=== PATIENT | female | born 1950 | race Caucasian/White ===

== ENCOUNTER 2017-08-11 09:38 | Emergency (ER) | payer MEDICARE ==
[~2017-08-11] VITALS: Ht 157.5 cm; Wt 64.0 kg
[2017-08-11 09:41] VITALS: Ht 157.5 cm; Wt 64.0 kg
--- NOTE | 2017-08-11 10:35 | RADRPT ---
PROCEDURE: US Abdomen Limited . CLINICAL INDICATION: Abdominal pain TECHNIQUE: Multiple real-time images were acquired of the patient's right upper quadrant abdomen u tilizing a high resolution transducer. COMPARISON: None FINDINGS: The liver measures 13.2 cm and demonstrates a normal echogenicity. The gallbladder is filled with a moderate amount of bile. No shadowing echogenic stones or masses are seen in the gallbladder. The gallbladder wall is not thickened at 2.4 mm. No pericholecystic fluid is noted. The common bile duct measures 2.3 mm in diameter. The visualized portions of the proximal pancreas are unremarkable. Th e tail of the pancreas is not well visualized. Antegrade flow is seen in the portal vein. Right kidney measures 10.4 cm. Right kidney demonstrates a normal echogenicity. No hydronephrosis, masses or stones are noted. IMPRESSION: Tail of the pancreas not well visualized. If characterization of this structure is needed repeat exa m or CT/MRI is recommended. Otherwise, unremarkable exam. RPTAT: AA .Luis A Ramsey MD, MD Date Time Electronically viewed and signed by .Luis A Ramsey MD, MD on 08/11/2017 10:35 .P/
[2017-08-11 10:40] LABS: BASOPHIL # 0.1 10^3/ul (0.0-0.1); EOSINOPHILS # 0.1 10^3/ul (0.0-0.5); EOSINOPHILS % 1.3 % (0.0-7.0); HEMATOCRIT 40.8 % (37.0-47.0); HEMOGLOBIN 13.5 g/dl (12.0-16.0); LYMPHOCYTES # 2.2 10^3/ul (0.8-2.9); LYMPHOCYTES % 30.8 % (15.0-51.0); MEAN CORPUSCULAR HEMOGLOBIN 30.1 pg (29.0-33.0); MEAN CORPUSCULAR HGB CONC 33.1 g/dl (32.0-37.0); MEAN CORPUSCULAR VOLUME 91.1 fl (82.0-101.0); MEAN PLATELET VOLUME 10.7 fl (7.4-10.4); MONOCYTE # 0.4 10^3/ul (0.3-0.9); MONOCYTES % 5.9 % (0.0-11.0); NEUTROPHIL # 4.4 10^3/ul (1.6-7.5); NEUTROPHILS % 60.7 % (39.0-77.0); PLATELET COUNT 251 10^3/UL (140-415); RED BLOOD COUNT 4.48 10^6/ul (4.20-5.40); RED CELL DISTRIBUTION WIDTH 12.4 % (11.5-14.5); WHITE BLOOD COUNT 7.2 10^3/ul (4.8-10.8)
[2017-08-11 10:58] LABS: ADD UMIC YES; UR ASCORBIC ACID NEGATIVE (NEGATIVE); UR BILIRUBIN (Dip) NEGATIVE (NEGATIVE); UR BLOOD (Dip) 2+ mg/dL (NEGATIVE); UR CLARITY CLEAR (CLEAR); UR COLOR YELLOW (YELLOW); UR GLUCOSE (Dip) NEGATIVE (NEGATIVE); UR KETONES (Dip) NEGATIVE (NEGATIVE); UR LEUKOCYTE ESTERASE (Dip) NEGATIVE Leu/ul (NEGATIVE); UR MUCUS MODERATE /HPF (NONE SEEN); UR NITRITE (Dip) NEGATIVE (NEGATIVE); UR RBC 5 /HPF (0-5); UR SPECIFIC GRAVITY (Dip) 1.026 (1.003-1.030); UR SQUAMOUS EPITHELIAL CELL FEW /HPF (FEW); UR TOTAL PROTEIN (Dip) NEGATIVE (NEGATIVE); UR UROBILINOGEN (Dip) NEGATIVE (NEGATIVE)
[2017-08-11 11:03] LABS: ALBUMIN 4.4 g/dl (3.3-4.9); ALBUMIN/GLOBULIN RATIO 1.18; BILIRUBIN,INDIRECT 0.5 mg/dl (0-1.1); BILIRUBIN,TOTAL 0.5 mg/dl (0.2-1.3); CALCIUM 9.3 mg/dl (8.4-10.2); CREATININE 0.83 mg/dl (0.44-1.00); POTASSIUM 3.6 mmol/L (3.5-5.1); TOTAL PROTEIN 8.1 g/dl (6.1-8.1)
--- NOTE | 2017-08-11 11:07 | RADRPT ---
PROCEDURE: CT Abdomen and Pelvis without contrast. CLINICAL INDICATION: Abdominal pain. TECHNIQUE: CT scan of the abdomen and pelvis without contrast was performed on a multidetector CT scanner. The patient was scanned without intravenous contrast. Coronal and sagittal reformatted marcus ges were obtained from the axial source images. Images were reviewed on a high-resolution PACS works tation. DICOM images are available. One or more of the following dose reduction techniques were used: -Automated exposure control. -Adjustment of the mA and/or kV according to patient size. -Use of iterative reconstruction technique. The total exam CTDI equals 8.08 mGy and the total exam DLP equals 399.50 mGy-cm. COMPARISON: None. FINDINGS: Please note that the sensitivity for detection of focal lesions or vascular disease is markedly redu gokul without intravenous contrast. There is bibasilar atelectasis. CT abdomen: Liver: Nonspecific calcification in the right hepatic lobe, otherwise unremarkable. Biliary system: No intra or extrahepatic biliary ductal dilatation. Gallbladder: Unremarkable. Pancreas: Unremarkable. Spleen: Unremarkable. Adrenal glands: Unremarkable. Right kidney: Unremarkable. No renal or ureteric stones. No hydronephrosis or hydroureter. Left kidney: Unremarkable. No renal or ureteric stones. No hydronephrosis or hydroureter. Bowel loops: Unremarkable. There is no bowel obstruction. Appendix normal. Lymph Nodes: There is no mesenteric lymphadenopathy. There is no retroperitoneal lymphadenopathy. CT pelvis: Bowel loops: Unremarkable. Rectum: Unremarkable. Urinary bladder: Unremarkable. Unenhanced uterus appears unremarkable. No adnexal mass. Lymph nodes: There is no iliac lymphadenopathy. There is no inguinal lymphadenopathy. Bone: No aggressive osseous lesions. There are multilevel degenerative changes of the imaged spine. IMPRESSION: 1. No acute abnormality of the abdomen or pelvis. 2. No renal or ureteric calculi. No hydronephrosis. 3. No bowel obstruction. Normal appendix. RPTAT: EE Crystal Paez Physician Date Time Electronically viewed and signed by Crystal Paez Physician on 08/11/2017 11:06 PH/
[2017-08-11 11:23] VITALS: BP 149/84; PULSE 99; RESP 17; TEMP 98.2
[2017-08-11] MEDS ORDERED: IBUP800T25 PO (12:16)
--- NOTE | 2017-08-11 12:20 | ERD ---
ER Documentation Chief Complaint Chief Complaint R.side flank pain x 2 days with urination urgency x 1 month HPI This is a 67-year-old female who presents to the emergency room with 2 days of right-sided flank pain radiating to the anterior abdomen. It radiates to the mid abdomen. She does describe some urinary urgency for approximately 1 month but no significant dysuria or hematuria. She denies any nausea vomiting or constipation. She states no pain currently but was having some discomfort last night. ROS All systems reviewed and are negative except as per history of present illness. Medications Home Meds Active Scripts Ibuprofen* (Motrin*) 800 Mg Tab, 800 MG PO Q6H Y for PAIN AND OR ELEVATED TEMP, #30 TAB Prov:LYSSA OLMEDO MD 08/11/17 Allergies Allergies: Coded Allergies: No Known Allergy (Unverified , 08/11/17) PMhx/Soc Medical and Surgical Hx: pt denies Medical Hx History of Surgery: Yes (right wrist surgery) Anesthesia Reaction: No Hx Neurological Disorder: No Hx Respiratory Disorders: No Hx Cardiac Disorders: No Hx Psychiatric Problems: No Hx Miscellaneous Medical Probl: No Hx Alcohol Use: No Hx Substance Use: No Hx Tobacco Use: No Smoking Status: Never smoker FmHx Family History: No diabetes Physical Exam Vitals Vital Signs Date Time Temp Pulse Resp B/P Pulse Ox O2 Delivery O2 Flow Rate FiO2 08/11/17 11:23 98.2 99 17 149/84 98 Room Air 08/11/17 09:41 98.0 112 20 128/83 99 Physical Exam General: Well developed, well nourished, no acute distress Head: Normocephalic, atraumatic. Eyes: Pupils equally reactive, EOM intact ENT: Moist mucous membranes Neck: Supple, no lymphadenopathy Respiratory: Lungs clear bilaterally, no distress Cardiovascular: RRR, no murmurs, rubs, or gallops Abdominal: Soft, non-tender, non-distended, no peritoneal signs, negative Simpson sign, no tenderness to McBurney's point : Deferred MSK: No edema, no unilateral swelling, 5/5 strength Neurologic: Alert and oriented, moving all extremities, normal speech, no focal weakness, no cerebellar signs Skin: No rash, no evidence of shingles Psych: Normal mood Result Diagram: 08/11/17 1016 08/11/17 1016 Results 24 hrs Laboratory Tests Test 08/11/17 10:16 White Blood Count 7.210^3/ul Red Blood Count 4.4810^6/ul Hemoglobin 13.5g/dl Hematocrit 40.8% Mean Corpuscular Volume 91.1fl Mean Corpuscular Hemoglobin 30.1pg Mean Corpuscular Hemoglobin Concent 33.1g/dl Red Cell Distribution Width 12.4% Platelet Count 04540^3/UL Mean Platelet Volume 10.7fl Neutrophils % 60.7% Lymphocytes % 30.8% Monocytes % 5.9% Eosinophils % 1.3% Basophils % 1.0% Nucleated Red Blood Cells % 0.0/100WBC Neutrophils # 4.410^3/ul Lymphocytes # 2.210^3/ul Monocytes # 0.410^3/ul Eosinophils # 0.110^3/ul Basophils # 0.110^3/ul Nucleated Red Blood Cells # 0.010^3/ul Urine Color YELLOW Urine Clarity CLEAR Urine pH 5.0 Urine Specific [place] 1.026 Urine Ketones NEGATIVEmg/dL Urine Nitrite NEGATIVEmg/dL Urine Bilirubin NEGATIVEmg/dL Urine Urobilinogen NEGATIVEmg/dL Urine Leukocyte Esterase NEGATIVELeu/ul Urine Microscopic RBC 5/HPF Urine Microscopic WBC 1/HPF Urine Squamous Epithelial Cells FEW/HPF Urine Mucus MODERATE/HPF Urine Hemoglobin 2+mg/dL Urine Glucose NEGATIVEmg/dL Urine Total Protein NEGATIVEmg/dl Sodium Level 144mmol/L Potassium Level 3.6mmol/L Chloride Level 105mmol/L Carbon Dioxide Level 25mmol/L Anion Gap 18 Blood Urea Nitrogen 18mg/dl Creatinine 0.83mg/dl Glucose Level 127mg/dl Calcium Level 9.3mg/dl Total Bilirubin 0.5mg/dl Direct Bilirubin 0.00mg/dl Indirect Bilirubin 0.5mg/dl Aspartate Amino Transf (AST/SGOT) 29IU/L Alanine Aminotransferase (ALT/SGPT) 29IU/L Alkaline Phosphatase 78IU/L Total Protein 8.1g/dl Albumin 4.4g/dl Globulin 3.70g/dl Albumin/Globulin Ratio 1.18 Lipase 90U/L Procedures/MDM EKG, MONITORS, & DIAGNOSTIC IMAGING: Gallbladder ultrasound: No evidence of acute process per radiologist CT abdomen and pelvis: No evidence of acute intra-abdominal process per radiologist LAB INTERPRETATION: The patient has no significant leukocytosis no evidence of hepatobiliary obstruction and a urinalysis that is unremarkable. MEDICAL DECISION MAKING: Patient presents with flank pain of unclear etiology. The patient is asymptomatic currently. Consider her location of pain this could be traveling sales representative of gallbladder disease process versus ureterolithiasis. No evidence of shingles. No pleuritic pain, no evidence of cardiopulmonary process. No respiratory symptoms. No signs or symptoms concerning for ACS or pulmonary embolism. Given the patient's age I believe she would benefit from laboratory testing and diagnostic imaging. ER COURSE: The patient did not have any pain and was asymptomatic here in the emergency room. No evidence of acute vascular emergency such as dissection or aneurysm. The patient has laboratory testing that is unrevealing. Diagnostic imaging that is also unrevealing. At this time I do not have a clear etiology as to the patient's symptoms however this could be traveling sales representative of a musculoskeletal process. The patient has no evidence of acute process based on labs and imaging here in the emergency room. At this point I feel she can be safely discharged home with nonsteroidal anti-inflammatory course. She was advised to return for any worsening pain or exacerbation of symptoms or other symptoms. The patient verbalized understanding and feel comfortable with this plan. Patient's blood pressure was elevated (>120/80) but appears stable without evidence of hypertensive emergency or urgency. The patient was counseled about the risks of hypertension and urged to pursue outpatient monitoring and therapy within a week with their primary care physician. I kept the patient and/or family informed of laboratory and diagnostic imaging results throughout the emergency room course. DISPOSITION PLAN: We discussed follow up with the patient's primary care doctor within 24 to 48 hours as needed. We also discussed return to the emergency room for worsening symptoms or worsening condition. Outpatient referral: [None required] Discharge Medications: Motrin Departure Diagnosis: Primary Impression: Flank pain Condition: Stable Patient Instructions: Flank Pain, Uncertain Cause Referrals: [facility] Usted se pan hecho un examen mdico de control que le indica que no est en maria isabel condicin que requiera tratamiento urgente en el Departamento de Emergencia. Un estudio ms profundo y el tratamiento de ramirez condicin pueden esperar sin ningn riesgo hasta que usted sea atendida/o en el consultorio de ramirez mdico o maria isabel cl winnie. Es responsabilidad suya arreglar maria isabel moe para el seguimiento del marcy. MANEJO DE CONDICIONES NO URGENTES EN EL FUTURO 1) Si usted tiene un mdico de atencin primaria: Usted debera llamar a ramirez mdico de atencin primaria antes de venir al departamento de emergencia. Despus de las horas de consultorio, ramirez doctor o ramirez asociado/a est disponible por telfono. El mdico o enfermero de bry en el servicio telefnico puede asesorarle por anny medio para atender el problema, o marcy contrario se puede programar maria isabel moe. 2) Si usted no tiene un mdico de atencin primaria: Llame al mdico o clnica de referencia que aparece abajo carlee las horas de consultorio para hacer maria isabel moe para que le vean. CLINICAS: [facility] [phone] [facility] [facility] [phone] [address] [facility]. [facility] [phone] [address] [facility]. [facility] [phone] [address] [facility]. [facility] [phone] [address] [facility]. [phone] [facility] () Khalida se pan hecho un examen mdico de control que le indica que no est en maria isabel condicin que requiera tratamiento urgente en el Departamento de Emergencia. Un estudio ms profundo y el tratamiento de ramirez condicin pueden esperar sin ningn riesgo hasta que usted sea atendida/o en el consultorio de ramirez mdico o maria isabel cl winnie. Es responsabilidad suya arreglar maria isabel moe para el seguimiento del marcy. MANEJO DE CONDICIONES NO URGENTES EN EL FUTURO 1) Si usted tiene un mdico de atencin primaria: Usted debera llamar a ramirez mdico de atencin primaria antes de venir al departamento de emergencia. Despus de las horas de consultorio, ramirez doctor o ramirez asociado/a est disponible por telfono. El mdico o enfermero de bry en el servicio telefnico puede asesorarle por anny medio para atender el problema, o marcy contrario se puede programar maria isabel moe. 2) Si usted no tiene un mdico de atencin primaria: Llame al mdico o condado institucions de referencia que aparece abajo carlee las horas de consultorio para hacer maria isabel moe para que le vean. SI USTED NO PUEDE PAGAR PARA NERY UN MEDICO puede ir a: [facility] [id number] [place] [address] [facility] [address] [place] [address] [facility] [address] [place] [address] [address] [facility] [address] [place], [place] [id number] Additional Instructions: Call your primary care doctor TOMORROW for an appointment during the next 1 WEEK.Tell the secretary to board of commissioners that you were referred from this facility.See the doctor sooner or return here if your condition worsens before your appointment time. Llame al doctor nombrado abajo (Referral Sources) MAANA y geraldo maria isabel MOE PARA DENTRO DE MARIA ISABEL SEMANA. Dgale a la secretaria que nosotros le instruimos hacer esta moe.Avise o llame si ramirez condicin se empeora antes de la moe. LYSSA OLMEDO MD Aug 11, 2017 12:20
== END 2017-08-11 12:36 | disposition home or self-care (01) ==
LOC: E/R 09:38
DX: R10.9 Unspecified abdominal pain (principal)
CPT/HCPCS: 36415; 74176; 76705; 80053; 81001; 83690; 85025